=== PATIENT | male | born 1995 | race Caucasian/White ===

== ENCOUNTER 2024-12-14 14:51 | Emergency (ER) | payer SELFPAY ==
[~2024-12-14] VITALS: Ht 185.4 cm; Wt 73.0 kg
[2024-12-14 14:52] VITALS: O2SAT 100
[2024-12-14 15:24] VITALS: BP 138/80; PULSE 92; RESP 14; TEMP 36.7; O2SAT 100
== END 2024-12-14 15:24 | disposition home or self-care (01) ==
LOC: ER 14:51
DX: F10.90 Alcohol use, unspecified, uncomplicated (principal); Y90.9 Presence of alcohol in blood, level not specified
CPT/HCPCS: 99283